=== PATIENT | male | born 1945 | race Caucasian/White ===

== ENCOUNTER 2024-07-27 11:26 | Inpatient (IN) | payer OTHER ==
[2024-07-27 12:18] LABS: Absolute Eosinophils 0.1 K/uL (0-0.5); Absolute Monocytes 0.6 K/uL (0.1-1.3); Absolute Neutrophil 8.8 K/uL (1.8-8.0); Basophils % 0.4 % (0-1.3); Eosinophils % 0.5 % (0-4.4); Hematocrit 45.6 % (39.6-49.0); Lymphocytes % 9.5 % (15.3-44.8); MCH 29.1 pg (27.0-35.0); MCHC 32.8 g/dL (32.0-36.0); MCV 88.5 fL (80-100); MPV 7.6 fL (7.6-11.3); Monocytes % 5.3 % (3.3-12.3); Neutrophils % 84.3 % (41.7-73.7); Platelets 229 thou/uL (152-406); RBC Red Blood Cell Count 5.15 M/uL (4.33-5.43); Red Cell Distribution Width 14.3 % (12.1-15.2)
[2024-07-27 12:25] LABS: PT Prothrombin Time 10.2 SECONDS (9.4-12.5); PTT, Activated Partial Thromb 25.7 SECONDS (24.3-36.9); Protime INR 0.91
--- NOTE | 2024-07-27 12:37 | RAD REPORT ---
EXAM DESCRIPTION: CT - Head Brain Wo Cont - 07/27/2024 12:29 pm CLINICAL HISTORY: DIZZINESS Headache, drowsiness COMPARISON: <Comparisons> TECHNIQUE: All CT scans are performed using dose optimization technique as appropriate and may inclu de automated exposure control or mA/KV adjustment according to patient size. FINDINGS: No intracranial hemorrhage, hydrocephalus or extra-axial fluid collection.Mild generalized brain atrophy is present with mild periventricular and deep white matter chronic microvascular ische jacqueline changes.No areas of brain edema or evidence of midline shift. The paranasal sinuses and mastoids are clear. The calvarium is intact. IMPRESSION: No acute intracranial abnormality.
[2024-07-27 12:41] LABS: Albumin 3.3 g/dL (3.4-5.0); Anion Gap 14.5 mEq/L (5.0-15.0); Bilirubin Direct 0.2 mg/dL (0-0.2); Bilirubin Indirect, Calculated 0.6 mg/dL (0.2-0.8); Bilirubin Total 0.8 mg/dL (0.2-1.0); Globulin 3.4 g/dL (2.3-3.5); Magnesium 2.1 mg/dL (1.6-2.4); Potassium 3.5 mEq/L (3.5-5.1); Protein, Total 6.7 g/dL (6.4-8.2); Troponin High Sensitivity 22.7 pg/mL (<58.9)
--- NOTE | 2024-07-27 12:43 | RAD REPORT ---
EXAM DESCRIPTION: CT - Head angio - 07/27/2024 12:29 pm CLINICAL HISTORY: dizziness Headache, drowsiness, CVA symptomology COMPARISON: <Comparisons> TECHNIQUE: CT angiography of the head was performed with MIPs. All CT scans are performed using dose optimization technique as appropriate and may include automated exposure control or mA/KV adjustment according to patient size. FINDINGS: No evidence of large vessel occlusion. No evidence of aneurysm is detected. No flow-limiti ng stenosis or vascular malformation identified. Antegrade flow is seen in the vertebral arteries. The vertebral arteries are codominant. The visualized dural venous sinuses are patent. IMPRESSION: No significant flow abnormality is detected.
--- NOTE | 2024-07-27 12:47 | RAD REPORT ---
EXAM DESCRIPTION: CT - Neck Angio - 07/27/2024 12:29 pm CLINICAL HISTORY: dizziness COMPARISON: <Comparisons> TECHNIQUE: CT angiography of the neck vessels was performed with MIPs. All CT scans are performed using dose optimization technique as appropriate and may include automated exposure control or mA/KV adjustment according to patient size. FINDINGS: A left aortic arch is identified with normal three vessel configuration of the great vesse ls. No significant flow abnormality is seen of the common carotid bilaterally. Mild hard plaque is seen post bulbar right ICA. No significant left-sided plaque. Small focal plaque also seen origin of the right ECA. Findings do not result in a significant stenosis. Normal flow is seen within both vertebral arteries. IMPRESSION: No significant flow abnormality of the neck vessels is identified. NASCET criteria used. Mild 0-49% stenosis Moderate 50-69% stenosis Severe 70-99% stenosis
[2024-07-27] MEDS ORDERED: ONDANSETRON 4 MG/2 ML VIAL ONE (13:05)
[2024-07-27] MEDS ORDERED: NA CHLORIDE 0.9% 1,000 ML ONE (13:05)
[2024-07-27] MEDS ORDERED: MECLIZINE HCL 12.5 MG TAB ONE (13:05)
--- NOTE | 2024-07-27 14:54 | RAD REPORT ---
EXAM DESCRIPTION: RAD - Chest Single View - 07/27/2024 2:22 pm CLINICAL HISTORY: dizziness Chest pain. COMPARISON: <Comparisons> FINDINGS: Portable technique limits examination quality. The lungs are grossly clear. The heart is upper limit of normal in size. No displaced fractures.Dual lead pacer device. IMPRESSION: No acute intrathoracic process suspected.
[2024-07-27] MEDS ORDERED: MORPHINE 2 MG/ML SYR IV PRN (15:33)
--- NOTE | 2024-07-27 15:40 | ER ---
Nurse's Notes [facility] Name: Sarath Cherry Age: 78 yrs Sex: Male : 1945 Arrival Date: 07/27/2024 Time: 11:26 Bed 19 Private MD: Diagnosis: Vertigo;Inability to ambulate;Left-sided facial droop Presentation: 07/27 11:46 Chief complaint: Parent and/or Guardian states: has had shingles since Jul 01, was in iw his ear , this last week they said it was clear, now he has dizziness and nausea and unable to walk X 3 weeks , they want him to have an MRI, my eyes are blurry and when I stand up I almost pass out, but he has a pacemaker. Coronavirus screen: At this time, the client does not indicate any symptoms associated with coronavirus-19. Ebola Screen: No symptoms or risks identified at this time. 11:46 Method Of Arrival: Wheelchair iw 11:46 Acuity: KAREN 3 iw 11:48 Initial Sepsis Screen: Does the patient meet any 2 criteria? No. Patient's initial iw sepsis screen is negative. Does the patient have a suspected source of infection? No. Patient's initial sepsis screen is negative. Risk Assessment: Do you want to hurt yourself or someone else? Patient reports no desire to harm self or others. Onset of symptoms was July 01, 2024. Historical: - Allergies: 11:48 PENICILLINS; iw 11:49 TETRACYCLINES; iw - Immunization history:: Client reports receiving the 2nd dose of the Covid vaccine. - Infectious Disease History:: Denies. - Family history:: not pertinent. - Social history:: Smoking status: unknown. Screenin:09 [facility] ED Fall Risk Assessment (Adult) History of falling in the last 3 months, tm6 including since admission No falls in past 3 months (0 pts) Confusion or Disorientation No (0 pts) Intoxicated or Sedated No (0 pts) Impaired Gait No (0 pts) Mobility Assist Device Used No (0 pt) Altered Elimination No (0 pt) Score/Fall Risk Level 0 - 2 = Low Risk Oriented to surroundings, Maintained a safe environment, Educated pt \\T\\ family on fall prevention, incl call for assistance when getting out of bed. Abuse screen: Denies threats or abuse. Denies injuries from another. Nutritional screening: No deficits noted. Tuberculosis screening: No symptoms or risk factors identified. Rice Swallow Protocol Exclusion Criteria: Brief Cognitive Screen What is your name? Normal, Where are you right now? Normal, What year is it? Normal. Oral Mechanism Examination Facial Symmetry: Normal, Motion: Normal, Lip Closure: Normal, Oral Mechanism Result: Normal. 3 oz Water Swallow Challenge: Pt able to drink all water without stopping, coughing, choking or throat clearing: Yes Result: PASS. Assessment: 13:10 General: Appears in no apparent distress. Behavior is calm, cooperative. Pain: Denies tm6 pain. Neuro: Level of Consciousness is awake, alert, obeys commands, Oriented to person, place, time, situation, Reports dizziness. Neuro: Reports "feels like a basketball in my head". Cardiovascular: Patient's skin is warm and dry. Respiratory: Airway is patent Respiratory effort is even, unlabored. GI: No signs and/or symptoms were reported involving the gastrointestinal system. Abdomen is flat, non-distended. : No signs and/or symptoms were reported regarding the genitourinary system. EENT: No signs and/or symptoms were reported regarding the EENT system. Derm: No signs and/or symptoms reported regarding the dermatologic system. Musculoskeletal: Reports weakness in general weakness. 14:59 Reassessment: Patient appears in no apparent distress at this time. Patient is alert, tm6 oriented x 3, equal unlabored respirations, skin warm/dry/pink. Patient is alert/active/playful, equal unlabored respirations, skin warm/dry/pink. Patient states feeling better. Patient states symptoms have improved. 18:30 Reassessment: Patient and/or family updated on plan of care and expected duration. Pain tm6 level reassessed. Patient is alert, oriented x 3, equal unlabored respirations, skin warm/dry/pink. report faxed and confirmed. Vital Signs: 11:46 BP 136 / 82; Pulse 72; Resp 16; Temp 98.1; Pulse Ox 100% on R/A; iw 13:10 BP 135 / 74; Pulse 76; Pulse Ox 100% on R/A; Pain 0/10; tm6 14:58 BP 144 / 79; Pulse 76; Resp 21; Temp 98.1; Pulse Ox 99% on R/A; Pain 0/10; tm6 19:10 BP 146 / 68; Pulse 75; Pulse Ox 97% on R/A; tm6 13:10 Pain Scale: Adult tm6 14:58 Pain Scale: Adult tm6 ED Course: 11:28 Patient arrived in ED. mr 11:46 Luis Monteiro MD is Attending Physician. rt 11:48 Triage completed. iw 11:49 Arm band placed on. iw 11:49 Patient has correct armband on for positive identification. Placed in gown. Bed in low tm6 position. Call light in reach. Side rails up X 1. Client placed on continuous cardiac and pulse oximetry monitoring. NIBP monitoring applied. universal banker on. Pulse ox on. NIBP on. 12:11 Basic Metabolic Panel Sent. bc6 12:11 CBC with Diff Sent. bc6 12:11 Hepatic Function Sent. bc6 12:11 High Sensitivity Troponin Sent. bc6 12:11 Magnesium Sent. bc6 12:11 Protime (+inr) Sent. bc6 12:11 Ptt, Activated Sent. bc6 12:11 Initial lab(s) drawn, by me, sent to lab. Inserted saline lock: 20 gauge in right bc6 antecubital area, using aseptic technique. Blood collected. Flushed with 10 mL NS. 12:31 CT Neck Angio In Process Unspecified. EDMS 12:31 CT Head Brain wo Cont In Process Unspecified. EDMS 12:31 Head angio In Process Unspecified. EDMS 12:57 William Henriquez, RN is Primary Nurse. tm6 14:24 Chest Single View XRAY In Process Unspecified. EDMS 15:39 Marino Lee MD is Hospitalizing Provider. rt 19:11 Provided Education on: need for admit. tm6 19:11 No provider procedures requiring assistance completed. Patient admitted, IV remains in tm6 place. Administered Medications: 13:09 Drug: NS 0.9% IV 1000 ml IV at 1 bolus Per protocol; 1000 mL bolus Route: IV; Rate: 1 tm6 bolus; Site: right antecubital; 15:08 Follow up: Response: No adverse reaction; IV Status: Completed infusion; IV Intake: tm6 1000ml 13:09 Drug: Meclizine PO 50 mg PO once Route: PO; tm6 15:08 Follow up: Response: No adverse reaction; Marked relief of symptoms tm6 13:09 Drug: Ondansetron IVP 4 mg IVP once; over 2 minutes Route: IVP; Site: right antecubital;tm6 15:08 Follow up: Response: No adverse reaction tm6 Medication: 13:10 VIS not applicable for this client. tm6 Intake: 15:08 IV: 1000ml; Total: 1000ml. tm6 Outcome: 15:40 Decision to Hospitalize by Provider. rt 19:11 Admitted to Med/surg tm6 19:11 Condition: stable 19:11 Instructed on the need for admit, 19:14 Patient left the ED. tm6 Signatures: Dispatcher [employer] EDMS Rosemarie Rico, Reg Reg mr Cristiana Rao RN RN Luis Monteiro MD MD rt Marlee Figueroa [facility] William Henriquez RN RN tm6 Corrections: (The following items were deleted from the chart) 11:49 11:48 Allergies: No Known Allergies; [facility]
--- NOTE | 2024-07-27 15:40 | EDPHYS ---
Physician Documentation [facility] Name: Sarath Cherry Age: 78 yrs Sex: Male : 1945 Arrival Date: 07/27/2024 Time: 11:26 Bed 19 Private MD: ED Physician Luis Monteiro HPI: 07/27 13:48 This 78 yrs old Male presents to ER via Wheelchair with complaints of Weakness, rt Dizziness, Headache, Decreased Appetite. 13:48 Patient presents to the ED with vertigo, dizziness, inability to stand or walk. He has rt associated nausea, vomiting. 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 States that the shingles is clear but he continues to have the dizziness symptoms, worsening. Was supposed to have an MRI, was able to do so due to pacemaker. Denies other acute complaints at this time, symptoms are moderate in severity, no other aggravating elevating factors. Historical: - Allergies: 11:48 PENICILLINS; iw 11:49 TETRACYCLINES; iw - Immunization history:: Client reports receiving the 2nd dose of the Covid vaccine. - Infectious Disease History:: Denies. - Family history:: not pertinent. - Social history:: Smoking status: unknown. ROS: 13:48 Constitutional: Negative for fever, chills, and weight loss, Cardiovascular: Negative rt for chest pain, palpitations, and edema, Respiratory: Negative for shortness of breath, cough, wheezing, and pleuritic chest pain, MS/Extremity: Negative for injury and deformity, Skin: Negative for injury, rash, and discoloration, 13:48 Abdomen/GI: Positive for nausea and vomiting, 13:48 Neuro: Positive for dizziness, Negative for altered mental status, Exam: 13:48 Constitutional: This is a well developed, well nourished patient who is awake, alert, rt and in no acute distress. Head/Face: Normocephalic, atraumatic. Chest/axilla: Normal chest wall appearance and motion. Nontender with no deformity. No lesions are appreciated. Cardiovascular: Regular rate and rhythm with a normal S1 and S2. No gallops, murmurs, or rubs. Normal PMI, no JVD. No pulse deficits. Respiratory: Lungs have equal breath sounds bilaterally, clear to auscultation and percussion. No rales, rhonchi or wheezes noted. No increased work of breathing, no retractions or nasal flaring. Abdomen/GI: Soft, non-tender, with normal bowel sounds. No distension or tympany. No guarding or rebound. No evidence of tenderness throughout. Skin: Warm, dry with normal turgor. Normal color with no rashes, no lesions, and no evidence of cellulitis. MS/ Extremity: Pulses equal, no cyanosis. Neurovascular intact. Full, normal range of motion. 13:48 ECG was reviewed by the Attending Physician. 13:48 Neuro: Left-sided Cia's palsy, involving the eyebrow, no other cranial nerve deficits, strength and sensation intact in upper lower extremities, speech normal, Vital Signs: 11:46 BP 136 / 82; Pulse 72; Resp 16; Temp 98.1; Pulse Ox 100% on R/A; iw 13:10 BP 135 / 74; Pulse 76; Pulse Ox 100% on R/A; Pain 0/10; tm6 14:58 BP 144 / 79; Pulse 76; Resp 21; Temp 98.1; Pulse Ox 99% on R/A; Pain 0/10; tm6 19:10 BP 146 / 68; Pulse 75; Pulse Ox 97% on R/A; tm6 13:10 Pain Scale: Adult tm6 14:58 Pain Scale: Adult tm6 MDM: 11:51 Patient medically screened. rt 16:07 Data reviewed: vital signs, nurses notes, lab test result(s), EKG, radiologic studies. rt Consideration of Admission/Observation Patient was admitted/placed on observation. Management of patient was discussed with the following: Hospitalist: Agrees to admit. I considered the following discharge prescriptions or medication management in the emergency department Medications were administered in the Emergency Department. See MAR. Independent interpretation of the following test(s) in the Emergency Department CT Scan: My interpretation is No intracranial hemorrhage seen on my interpretation of CT scan images. 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 Counseling: I had a detailed discussion with the patient and/or guardian regarding the historical points, exam findings, and any diagnostic results supporting the discharge/admit diagnosis, lab results, radiology results, the need for further work-up and treatment in the hospital. Response to treatment: the patient's symptoms have mildly improved after treatment. 07/27 12:02 Order name: Basic Metabolic Panel; Complete Time: 12:57 rt 07/27 12:02 Order name: CBC with Diff; Complete Time: 12:57 rt 07/27 12:02 Order name: Hepatic Function; Complete Time: 12:57 rt 07/27 12:02 Order name: High Sensitivity Troponin; Complete Time: 12:57 rt 07/27 12:02 Order name: Magnesium; Complete Time: 12:57 rt 07/27 12:02 Order name: Protime (+inr); Complete Time: 12:57 rt 07/27 12:02 Order name: Ptt, Activated; Complete Time: 12:57 rt 07/27 13:54 Order name: CREATININE WHOLE BLOOD; Complete Time: 14:04 EDMS 07/27 15:41 Order name: CBC with Automated Diff EDMS 07/27 15:41 Order name: CBC with Automated Diff EDMS 07/27 15:41 Order name: Comprehensive Metabolic Panel EDMS 07/27 15:41 Order name: Comprehensive Metabolic Panel EDMS 07/27 15:41 Order name: Protime (+INR) EDMS 07/27 15:41 Order name: Protime (+INR) EDMS 07/27 15:41 Order name: PTT, Activated Partial Thromb EDMS 07/27 15:41 Order name: PTT, Activated Partial Thromb EDMS 07/27 15:41 Order name: Troponin High Sensitivity EDMS 07/27 15:41 Order name: Troponin High Sensitivity EDMS 07/27 15:41 Order name: Troponin High Sensitivity EDMS 07/27 15:42 Order name: Lipid Profile EDMS 07/27 12:02 Order name: CT Neck Angio; Complete Time: 12:57 rt 07/27 12:02 Order name: CT Head Brain wo Cont; Complete Time: 12:57 rt 07/27 12:02 Order name: Chest Single View XRAY; Complete Time: 14:57 rt 07/27 12:06 Order name: Head angio; Complete Time: 12:57 EDMS 07/27 12:02 Order name: EKG; Complete Time: 12:02 rt 07/27 15:41 Order name: CONS Physician Consult EDMS 07/27 12:02 Order name: Accucheck; Complete Time: 13:09 rt 07/27 12:02 Order name: Cardiac monitoring; Complete Time: 13:09 rt 07/27 12:02 Order name: EKG - Nurse/Tech; Complete Time: 12:20 rt 07/27 12:02 Order name: IV Saline Lock; Complete Time: 12:11 rt 07/27 12:02 Order name: Labs collected and sent; Complete Time: 12:28 rt 07/27 12:02 Order name: NPO; Complete Time: 13:09 rt 07/27 12:02 Order name: O2 Per Protocol; Complete Time: 12:57 rt 07/27 12:02 Order name: O2 Sat Monitoring; Complete Time: 12:57 rt 07/27 12:02 Order name: Stroke Swallow Screen; Complete Time: 13:09 rt EC:48 Rate is 81 beats/min. Rhythm is regular, Normal Sinus Rhythm with No ectopy. QRS [place] rt is Normal. CO interval is normal. QRS interval is normal. QT interval is normal. No Q waves. T waves are Normal. No ST changes noted. Interpreted by me. Administered Medications: 13:09 Drug: NS 0.9% IV 1000 ml IV at 1 bolus Per protocol; 1000 mL bolus Route: IV; Rate: 1 tm6 bolus; Site: right antecubital; 15:08 Follow up: Response: No adverse reaction; IV Status: Completed infusion; IV Intake: tm6 1000ml 13:09 Drug: Meclizine PO 50 mg PO once Route: PO; tm6 15:08 Follow up: Response: No adverse reaction; Marked relief of symptoms tm6 13:09 Drug: Ondansetron IVP 4 mg IVP once; over 2 minutes Route: IVP; Site: right antecubital;tm6 15:08 Follow up: Response: No adverse reaction tm6 Disposition Summary: 07/27/24 15:40 Hospitalization Ordered Notes: Hospitalization Status: Observation rt Provider: Marino Lee rt Location: Telemetry/MedSurg (observation) rt Condition: Stable rt Problem: an ongoing problem rt Symptoms: have improved rt Bed/Room Type: Standard rt Room Assignment: 216(07/27/24 17:56) iw Diagnosis - Vertigo rt - Inability to ambulate rt - Left-sided facial droop rt Forms: - Medication Reconciliation Form rt - SBAR form rt - Leadership Thank You Letter rt Signatures: Dispatcher [employer] Cristiana Gustafson RN RN iw Luis Monteiro MD MD rt William Henriquez RN RN tm6 Corrections: (The following items were deleted from the chart) 11:49 11:48 Allergies: No Known Allergies; [facility] 17:56 15:40 rt iw
--- NOTE | 2024-07-27 15:49 | P.HP ---
Certification for Inpatient Patient admitted to: Inpatient With expected LOS: >2 Midnights Patient will require the following post-hospital care: Home Health Services Practitioner: I am a practitioner with admitting privileges, knowledge of patient current condition, hospital course, and medical plan of care. Services: Services provided to patient in accordance with Admission requirements found in Title 42 Section 412.3 of the Code of Federal Regulations Patient History Date of Service: 07/27/24 Reason for admission: Vertigo; ataxia; diplopia History of Present Illness: Patient is a 78-year-old gentleman who came to the hospital with vertigo. He states he has been losing weight and is unable to walk properly. His left arm has been weak as well. He said the symptoms. About 3 weeks ago when he developed shingles in the left ear. Since then he was treated with valacyclovir and steroids. Even after completing his steroid course he continues having symptoms with vertigo as well as weakness in the left side. He is having a hard time getting around. He has had double vision as well. His appetite is also been diminished and he gets nauseated whenever he gets ready to eat. He has lost about 20 pounds in the last 3 weeks. He probably suffered to the hospital for further workup. He follows up with his PCP in [place]. He was scheduled to get an MRI done but at that time they were not aware where it was compatible with an MRI. After talking to patient's slide attendant who inserted the pacemaker they found out it was compatible with MRI. At this time, patient will be admitted to the hospital for further workup. - Past Medical/Surgical History -: Hypertension -: BPH - Family History Father Family History: Reviewed- Non-Contributory - Social History Smoking Status: Former smoker Alcohol use: No CD- Drugs: No Review of Systems 10-point ROS is otherwise unremarkable Physical Examination - Vital Signs Temperature: 98 F Blood Pressure: 150/80 Pulse: 80 Respirations: 18 Pulse Ox (%): 95 - Physical Exam General: Alert, In no apparent distress, Oriented x3 HEENT: Atraumatic, PERRLA, Mucous membr. moist/pink, EOMI, Sclerae nonicteric Neck: Supple, 2+ carotid pulse no bruit, No LAD, Without JVD or thyroid abnormality Respiratory: Clear to auscultation bilaterally, Normal air movement Cardiovascular: Regular rate/rhythm, Normal S1 S2 Gastrointestinal: Normal bowel sounds, Soft and benign, Non-distended, No tenderness Musculoskeletal: No clubbing, No swelling, No tenderness Integumentary: No rashes Neurological: Normal speech, Normal tone, Sensation intact, Cranial nerves 3-12 intact, Normal affect, Abnormal gait, Abnormal strength Lymphatics: No axilla or inguinal lymphadenopathy - Studies Laboratory Data (last 24 hrs) 07/27/24 07/27/24 07/27/24 12:10 12:10 12:10 WBC 10.40 Hgb 15.0 Hct 45.6 Plt Count 229 PT 10.2 INR 0.91 APTT 25.7 Sodium 135 L Potassium 3.5 BUN 25 H Creatinine 0.95 Glucose 99 Magnesium 2.1 Total Bilirubin 0.8 AST 19 ALT 29 Alkaline Phosphatase 65 Assessment & Plan - Problems (Diagnosis) (1) Vertigo Current Visit: Yes Status: Acute (2) Blurred vision Current Visit: Yes Status: Acute (3) Ataxia Current Visit: Yes Status: Acute (4) History of hypertension Current Visit: Yes Status: Acute (5) Left-sided weakness Current Visit: Yes Status: Acute - Plan Plan: 1. MRI of the brain; pacemaker compatible with MRI imaging. Patient follows up with Dr. Weathers. Paperwork in the chart 2. Antiplatelet and statin therapy 3. Lipid profile 4. Physical therapy and speech therapy consultation 5. DVT prophylaxis 6. Neurochecks every 4 hours 7. Reassess stroke scale 8. GI and DVT prophylaxis Discharge Plan: Home Plan to discharge in: Greater than 2 days - Advance Directives Does patient have a Living Will: No Does patient have a Durable POA for Healthcare: No - Code Status/Comfort Care Code Status Assessed: Yes Code Status: Full Code Critical Care: No Time Spent Managing PTS Care (In Minutes): 56
[2024-07-27] MEDS: ENOXAPARIN 40 MG/0.4 ML SQ SCH (21:20)
[2024-07-27] MEDS: ATORVASTATIN 40 MG TAB PO SCH (21:21)
[2024-07-27] MEDS: HYDROCORTISONE SUC 100 MG INJ IV SCH (21:22)
[2024-07-27] MEDS: ACETAMINOPHEN 500 MG TAB PO PRN (21:23)
[2024-07-27] MEDS: NA CHLORIDE 0.9% 1,000 ML IV SCH (21:23)
[2024-07-27 22:27] VITALS: BMI 22.5
[2024-07-27] MEDS: MELATONIN 5 MG TABLET PO PRN (23:25)
[2024-07-28 04:44] LABS: Absolute Basophils 0.1 K/uL (0-0.5); Absolute Eosinophils 0.2 K/uL (0-0.5); Absolute Lymphocytes (CBC) 0.3 K/uL (0.7-4.9); Absolute Monocytes 0.3 K/uL (0.1-1.3); Absolute Neutrophil 9.3 K/uL (1.8-8.0); Basophils % 0.8 % (0-1.3); Eosinophils % 1.8 % (0-4.4); Hematocrit 37.8 % (39.6-49.0); Hemoglobin 12.4 g/dL (13.6-17.9); Lymphocytes % 2.7 % (15.3-44.8); MCH 29.1 pg (27.0-35.0); MCHC 32.8 g/dL (32.0-36.0); MCV 88.8 fL (80-100); MPV 7.8 fL (7.6-11.3); Monocytes % 3.1 % (3.3-12.3); Neutrophils % 91.6 % (41.7-73.7); Platelets 184 thou/uL (152-406); RBC Red Blood Cell Count 4.25 M/uL (4.33-5.43); Red Cell Distribution Width 14.5 % (12.1-15.2)
[2024-07-28 04:47] LABS: PT Prothrombin Time 10.9 SECONDS (9.4-12.5); Protime INR 0.97
[2024-07-28 05:01] LABS: Albumin 2.6 g/dL (3.4-5.0); Anion Gap 11.6 mEq/L (5.0-15.0); Bilirubin Total 0.6 mg/dL (0.2-1.0); Globulin 2.7 g/dL (2.3-3.5); Potassium 3.6 mEq/L (3.5-5.1); Protein, Total 5.3 g/dL (6.4-8.2)
[2024-07-28 05:26] LABS: Band Neutrophils 5 % (0-1); Differential Total Cells Count 100; Eosinophils 4 % (0-3); Lymphocytes 2 % (15-42); Monocytes 2 % (0-10); Segmented Neutrophils 86 % (40-80)
[2024-07-28 05:27] LABS: Blood Morphology Comment NOT SEEN (NOT SEEN); Platelet Estimate ADEQ
[2024-07-28] MEDS: ASPIRIN EC 81 MG TAB PO SCH (08:39)
--- NOTE | 2024-07-28 10:26 | P.PN ---
Date of Service: 07/28/24 Subjective Reports unintentional weight loss, moderate generalized weakness, vertigo, Neurology consulted, at bedside, fall precautions reports he is too weak to work with physical therapy Review of Systems 10-point ROS is otherwise unremarkable Physical Examination - Vital Signs reviewed - Physical Exam General: Alert, In no apparent distress, Oriented x3 HEENT: Atraumatic, PERRLA, Mucous membr. moist/pink, EOMI, Sclerae nonicteric Neck: Supple, 2+ carotid pulse no bruit, No LAD, Without JVD or thyroid abnormality Respiratory: Clear to auscultation bilaterally, Normal air movement Cardiovascular: Regular rate/rhythm, Normal S1 S2 Gastrointestinal: Normal bowel sounds, Soft and benign, Non-distended, No tenderness Musculoskeletal: No clubbing, No swelling, No tenderness Integumentary: No rashes Neurological: Normal speech, Normal tone, Sensation intact, Cranial nerves 3-12 intact, Normal affect, Abnormal gait, Abnormal strength Lymphatics: No axilla or inguinal lymphadenopathy Assessment & Plan - Problems (Diagnosis) (1) Vertigo Current Visit: Yes Status: Acute (2) Blurred vision Current Visit: Yes Status: Acute (3) Ataxia Current Visit: Yes Status: Acute (4) History of hypertension Current Visit: Yes Status: Acute (5) Left-sided weakness Current Visit: Yes Status: Acute - Plan Plan: 1. MRI of the brain; pacemaker compatible with MRI imaging. Patient follows up with Dr. Weathers. Paperwork in the chart 2. Antiplatelet and statin therapy 3. Lipid profile 4. Physical therapy and speech therapy consultation 5. DVT prophylaxis 6. Neurochecks every 4 hours 7. Reassess stroke scale 8. GI and DVT prophylaxis 9. CRP, TSH, vitamin B12 level, VZV IgG ordered by neurology 10. Neurology consult Dr. Fallon Discharge Plan: Home Plan to discharge in: Greater than 2 days - Advance Directives Does patient have a Living Will: No Does patient have a Durable POA for Healthcare: No - Code Status/Comfort Care Code Status Assessed: Yes Code Status: Full Code Critical Care: No Time Spent Managing PTS Care (In Minutes): 35 <Evy Pate - Last Filed: 07/28/24 21:25> Chart has been reviewed. Events of the last 24 hours have been noted. Case discussed with ARIEL. I performed a substantial part of the MDM during this patient's care today. I personally made or approved the documented management plan and acknowledge its risk of complications. I agree with the findings and documentation provided in the ARIEL's notes Awaiting for neurology input. Further studies with EEG pending. Trying to get patient transferred for MRI which is compatible with a pacemaker. <Marino Lee - Last Filed: 08/06/24 01:42>
--- NOTE | 2024-07-28 12:10 | EKG ---
Test Date: 2024-07-27 Test Time: 12:17:47 [employer] Supervisor: SHELLIE MEASUREMENT RESULTS: Intervals: Rate: 81 CO: 202 QRSD: 80 QT: 394 QTc: 457 [place]: P: 51 CO: 202 QRS: 76 T: 18 INTERPRETIVE STATEMENTS: Atrial-paced rhythm Abnormal ECG No previous ECG available for comparison Electronically Signed On 07-28-24 12:07:17 CDT by Carlos Thompson
[2024-07-28] MEDS: ONDANSETRON 4 MG/2 ML VIAL IV PRN (12:18)
[2024-07-28] MEDS: BISACODYL E.C. 5 MG TAB PO PRN (14:31)
[2024-07-28] MEDS: OXYCODONE *CR* 10 MG TAB PO SCH (16:35)
[2024-07-28] MEDS: FINASTERIDE 5 MG TAB PO SCH (16:36)
[2024-07-28] MEDS: AMLODIPINE 5 MG TAB PO SCH (16:36)
[2024-07-28] MEDS: lisinopriL 20 MG TAB PO SCH (16:36)
--- NOTE | 2024-07-28 23:21 | CON ---
Date of Consultation: 07/28/2024 Reason: Vertigo and ataxia. 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 He was actually up at [facility] about a week ago because he has been having prominent vertigo with nausea and has had some worsening gait imbalance problem, was fel t to probably be labyrinthine, and there was an issue there getting the MRI as well, so it was schedu led as an outpatient as he was slowly recovering or at least felt to be stable, but then he got home, finished the Valtrex and developed worsening gait problems, now requiring a walker to walk with some blurry and double vision. He has very prominent nystagmus even at rest with a rotatory component ev en without head movement. Difficulty eating and difficulty drinking, although he does not have dysph agia proper. Pacemaker is felt to be MRI compatible. He came to the ER because he continued to have difficulties walking and diplopia, all are little concerning for stroke. CT scan of the brain, no h emorrhage. CT angiogram, no large vessel occlusion. CT angiogram, neck vessels, vertebral patent, n o bleeding, no dissection. The patient went down to get an MRI, but it was determine that some type of special monitoring would be required and that this hospital would not have that capability, so he actually may need to be transferred for more advanced imaging that can be done safely. His primary c are had recommended that he see us as an outpatient, and that is in the words, but it would take a mo [facility] to see Neurology as an outpatient if not longer, so he presented to the emergency department here last night. It was clear that he could not be sent home safely. He can barely walk with a walker a nd so he was admitted, and I was consulted. Past Medical History: As alluded to. Medications: Home medications: Amlodipine, Zestril, finasteride, oxybutynin, esomeprazole. Medications here: Aspirin, Norvasc, Lipitor, Lovenox, Solu-Cortef he had recently, steroids, morphin e p.r.n., OxyContin. Allergies: PENICILLIN. Social History: Normally independent with activities of daily living. Family History: Noncontributory. Review of Systems: General: 20-pound weight loss, poor p.o. intake. Eyes: Diplopia. Ears, Nose, Throat: No dysphagia. Cardiovascular: Pacemaker, hypertension. Pulmonary: Negative. GI: Nausea. : Negative. Musculoskeletal: Negative. No neck pain. Neurologic: As noted. Psychiatric: Negative. Endocrine: Negative. Hematologic: Negative. Physical Examination: Vital Signs: 97.8, 62, 16, 158/74. General: Pleasant, somewhat thin gentleman, lying in bed, in no distress. He is awake, alert, orien josé miguel. He is not confused. Neurologic: He has ptosis on the right lid. He has spontaneous nystagmus to the right with a rotato ry component worse on the right gaze. Pupils are reactive. He has subjective diplopia. Had neutral gaze as well as left and right gaze. He has left facial weakness that spares the forehead, but the patient reports that it is an improving lower motor neuron type weakness. He does have some weakness to lid closure on the left, but is able to close both lids fully. No dysarthria. No dysphagia. Le ft tympanic membrane is clear. He does have some weakness to the left arm, but he says that is a lit tle more longstanding and he has a left biceps tendon rupture. I would gauge though weakness at 4+, but as noted there is no superimposed orthopedic component. Legs have full strength. Sensation is i ntact. Reflexes are 1/4. Left toe is upgoing, right toe is neutral. No [id number]-[id number]-mdeycd ataxia. Gait exam does demonstrate moderate truncal ataxia. Impression: Recent shingles, now with symptoms of posterior fossa ischemia versus potential superimp osed nutritional deficiency to account for the gait decompensation. It could be a persistent viral l abyrinthitis, but nausea is not extremely prominent and head impulse testing is nondiagnostic. Plan: Medications are appropriate for stroke prevention. He had an EEG that just demonstrated mild generalized slowing at least reassuring that there is not an encephalitic component. We will check a B12, thyroid, B1 level, sedimentation rate now which was not available. We will check a CRP. We wi ll repeat varicella titers. While he is here, we will restart some acyclovir IV given the history of recent shingles. If the patient does not improve with the aforementioned, he may indeed need to be transferred for MRI brain. Thank you for the consult. We will continue to follow with you. SATISH Voice ID: [id number] Report ID: [id number]
[2024-07-29] MEDS: ACYCLOVIR INJ 400 MG in NA CHLORIDE 0.9% 100 ML IVPB SCH (01:11)
[2024-07-29] MEDS: PANTOPRAZOLE 40MG TABLET PO SCH (05:21)
[2024-07-29] MEDS: OXYBUTYNIN ER 5 MG TAB PO SCH (05:22)
[2024-07-29 06:44] LABS: C-Reactive Protein 4.08 mg/L (<3.00); Thyroid Stimulating Hormone 1.88 uIU/mL (0.358-3.740)
--- NOTE | 2024-07-29 07:22 | P.PN ---
Date of Service: 07/29/24 Subjective Reports unintentional weight loss, moderate generalized weakness, vertigo, Neurology consulted, at bedside, fall precautions reports he is too weak to work with physical therapy Review of Systems 10-point ROS is otherwise unremarkable Physical Examination - Vital Signs reviewed - Physical Exam General: Alert, In no apparent distress, Oriented x3 HEENT: Atraumatic, PERRLA, Mucous membr. moist/pink, EOMI, Sclerae nonicteric Neck: Supple, 2+ carotid pulse no bruit, No LAD, Without JVD or thyroid abnormality Respiratory: Clear to auscultation bilaterally, Normal air movement Cardiovascular: Regular rate/rhythm, Normal S1 S2 Gastrointestinal: Normal bowel sounds, Soft and benign, Non-distended, No tenderness Musculoskeletal: No clubbing, No swelling, No tenderness Integumentary: No rashes Neurological: Normal speech, Normal tone, Sensation intact, Cranial nerves 3-12 intact, Normal affect, Abnormal gait, Abnormal strength Lymphatics: No axilla or inguinal lymphadenopathy Assessment & Plan - Problems (Diagnosis) suspected CVA Acute vertigo nausea vomiting Acute blurred vision Recent shingles infection [place] Gallo syndrome History of hypertension Acute left-sided weakness Acute ataxia history of bradycardia arrhythmia with recent pacemaker - Plan Plan: 1. MRI of the brain; pacemaker compatible with MRI imaging. Patient follows up with Dr. Weathers. Paperwork in the chart 2. Antiplatelet and statin therapy 3. Lipid profile 4. Physical therapy and speech therapy consultation 5. DVT prophylaxis 6. Neurochecks every 4 hours 7. Reassess stroke scale 8. GI and DVT prophylaxis 9. CRP, TSH, vitamin B12 level, VZV IgG ordered by neurology 10. Neurology consult Dr. Fallon Discharge Plan: Home Plan to discharge in: Greater than 2 days - Advance Directives Does patient have a Living Will: No Does patient have a Durable POA for Healthcare: No - Code Status/Comfort Care Code Status Assessed: Yes Code Status: Full Code Critical Care: No Time Spent Managing PTS Care (In Minutes): 35 <Evy Pate - Last Filed: 08/01/24 16:56> Chart has been reviewed. Events of the last 24 hours have been noted. Case discussed with ARIEL. I performed a substantial part of the MDM during this patient's care today. I personally made or approved the documented management plan and acknowledge its risk of complications. I agree with the findings and documentation provided in the ARIEL's notes Appreciate neurology input. Imaging studies reviewed. EEG reviewed. Trying to get patient transferred for MRI which is compatible with a pacemaker.Continue with physical therapy. Possible inpatient rehab placement. <Marino Lee - Last Filed: 08/06/24 01:43>
--- NOTE | 2024-07-29 07:35 | EEG ---
CHART: [id number] TEST ID#: [id number] DATE OF STUDY: 07-28-2024 THE EEG WAS RECORDED [place] IN THE PATIENT'S ROOM ON A 17 CHANNEL MACHINE. ELECTRODES WERE APPLIED IN THE USUAL MANNER USING THE INTERNATIONAL 10-20 SYSTEM. THE WAKING BACKGROUND RHYTHM IN THIS RECORD CONSISTS OF FAIRLY WELL DEVELOPED AND FAIRLY WELL ORGANIZED WAVES OF 9 HZ., MAXIMAL IN THE POSTERIOR HEAD REGIONS WHICH ATTENUATE NORMALLY WITH EYE OPENING. IN DROWSINESS THE BACKGROUND DROPS TO 8 HZ. THERE ARE NO FOCAL OR LATERALIZING FEATURES. NO EPILEPTIFORM ACTIVITY APPEARS. SLEEP DID NOT OCCUR. HYPERVENTILATION WAS NOT PERFORMED. PHOTIC STIMULATION PRODUCED FAIR DRIVING BILATERALLY. IMPRESSION: ABNORMAL EEG BECAUSE OF GENERALIZED SLOWING OF THE BACKGROUND. THE ABOVE SUGGESTS MILD DIFFUSE CEREBRAL DYSFUNCTION.
[2024-07-29] MEDS ORDERED: HOME MED 1 EA UNK (Esomeprazole Magnesium [Esomeprazole Magnesium] 40 MG Capsule.Dr) PO SCH (09:00)
[2024-07-29] MEDS: ACYCLOVIR INJ 700 MG in NA CHLORIDE 0.9% 100 ML IVPB SCH (09:33)
[2024-07-29] MEDS ORDERED: AMLODIPINE 5 MG TAB PO SCH (17:00)
[2024-07-29] MEDS: THIAMINE 200 MG/2 ML INJ IVP ONE (20:35)
--- NOTE | 2024-07-29 21:50 | PN ---
Date of Progress Note: 07/29/2024 Time: 1830 Reason: Ataxia, diplopia. Interval History: The patient is stable. He was able to walk a little better. Tolerated IV acyclov ir well and that has been increased to 10 mg/kg dose. Primary complaint remains diplopia and ataxia. Given those 2 symptoms with concomitant weight loss, we will add thiamine. Thiamine level is pendi ng. It may take some time for that to return. He is off the stress dose steroids. Physical Examination: Vital Signs: He is afebrile. Vitals are stable. General: Awake, alert, oriented. Neurologic: Left facial weakness, forehead spared. Spontaneous rotatory nystagmus, compo nent to the right. Ptosis, right eye. Slight ocular misalignment. Left biceps still weak, but appa rently that is a longstanding finding per the patient. Reflexes are well preserved. Toes are neutra l today. Impression: Diplopia and ataxia. Plan: Add thiamine. Continue the acyclovir. MRI is not going to be feasible at this institution. Talked to the patient's attending about trying to get a transfer for more advanced imaging. Given th e persistent symptomatology, we will continue to follow with you. ERIKA/ANY Voice ID: [id number] Report ID: [id number]
--- NOTE | 2024-07-30 07:21 | P.PN ---
Date of Service: 07/30/24 Subjective Reports unintentional weight loss, moderate generalized weakness, vertigo, Neurology consulted, at bedside, fall precautions reports he is too weak to work with physical therapy Review of Systems 10-point ROS is otherwise unremarkable Physical Examination - Vital Signs reviewed - Physical Exam General: Alert, In no apparent distress, Oriented x3 HEENT: Atraumatic, PERRLA, Mucous membr. moist/pink, EOMI, Sclerae nonicteric Neck: Supple, 2+ carotid pulse no bruit, No LAD, Without JVD or thyroid abnormality Respiratory: Clear to auscultation bilaterally, Normal air movement Cardiovascular: Regular rate/rhythm, Normal S1 S2 Gastrointestinal: Normal bowel sounds, Soft and benign, Non-distended, No tenderness Musculoskeletal: No clubbing, No swelling, No tenderness Integumentary: No rashes Neurological: Normal speech, Normal tone, Sensation intact, Cranial nerves 3-12 intact, Normal affect, Abnormal gait, Abnormal strength Lymphatics: No axilla or inguinal lymphadenopathy Assessment & Plan - Problems (Diagnosis) suspected CVA Acute vertigo nausea vomiting Acute blurred vision Recent shingles infection [place] Gallo syndrome History of hypertension Acute left-sided weakness Unintentional weight loss Acute ataxia history of bradycardia arrhythmia with recent pacemaker - Plan Plan: 1. MRI of the brain; pacemaker compatible with MRI imaging. Patient follows up with Dr. Weathers. Paperwork in the chart 2. Antiplatelet and statin therapy 3. Lipid profile 4. Physical therapy and speech therapy consultation 5. DVT prophylaxis 6. Neurochecks every 4 hours 7. Reassess stroke scale 8. GI and DVT prophylaxis 9. CRP, TSH, vitamin B12 level, VZV IgG ordered by neurology 10. Neurology consult Dr. Fallon Discharge Plan: Home Plan to discharge in: Greater than 2 days - Advance Directives Does patient have a Living Will: No Does patient have a Durable POA for Healthcare: No - Code Status/Comfort Care Code Status Assessed: Yes Code Status: Full Code Critical Care: No Time Spent Managing PTS Care (In Minutes): 35 <Evy Pate - Last Filed: 08/01/24 17:02> Chart has been reviewed. Events of the last 24 hours have been noted. Case discussed with ARIEL. I performed a substantial part of the MDM during this patient's care today. I personally made or approved the documented management plan and acknowledge its risk of complications. I agree with the findings and documentation provided in the ARIEL's notes Appreciate neurology input. Imaging studies reviewed. EEG reviewed. Trying to get patient transferred for MRI which is compatible with a pacemaker.Continue with physical therapy. Possible inpatient rehab placement. <Marino Lee - Last Filed: 08/06/24 01:43>
--- NOTE | 2024-07-30 07:54 | RAD REPORT ---
EXAM DESCRIPTION: CT - Head Brain Wo Cont - 07/30/2024 7:36 am CLINICAL HISTORY: diplopia COMPARISON: Head angio dated 07/27/2024; Head Brain Wo Cont dated 07/27/2024 TECHNIQUE: All CT scans are performed using dose optimization technique as appropriate and may inclu de automated exposure control or mA/KV adjustment according to patient size. FINDINGS: No intracranial hemorrhage, hydrocephalus or extra-axial fluid collection.No areas of brai n edema or evidence of midline shift. The paranasal sinuses and mastoids are clear. The calvarium is intact. IMPRESSION: No acute intracranial abnormality.
[2024-07-30] MEDS: THIAMINE 200 MG/2 ML INJ IVP SCH (09:43)
--- NOTE | 2024-07-30 23:06 | PN ---
Date of Progress Note: 07/30/2024 Time: 1630 Reason: Ataxia and diplopia. Interval History: Despite multiple attempts to get the patient transferred for more advanced imaging was successful. The patient is indeed stable. He is on appropriate medication for secondary stroke prevention and there is no evidence for large vessel occlusion on CT scan. Continues to have diplop ia. The nausea is improving and the gait is improving, so I recommend continuing the present treatme nt course. Consult for inpatient rehab has been ordered. I think that would be appropriate as well. He was ambulating independently prior to admission. Physical Examination: Vital Signs: He is afebrile. Vitals are stable. General: Awake, alert, oriented, lucid. Neurologic: Pupils reactive. Spontaneous nystagmus to the right, less prominent. Still subjective diplopia. Left facial weakness. Left arm weakness more longstanding. Reflexes symmetric. No finge b-hugj-[id number] ataxia. Impression: Diplopia, ataxia, probable posterior fossa ischemic event. Plan: Continue general supportive care. Inpatient rehab scheduled for evaluation on Friday tamera hamilton. Would continue the thiamine and IV acyclovir while he is hospitalized. Check electrolytes an d renal function in the morning. We will follow up on Friday. ERIKA/ANY Voice ID: [id number] Report ID: [id number]
[2024-07-31 07:15] LABS: Albumin 2.6 g/dL (3.4-5.0); Anion Gap 7.1 mEq/L (5.0-15.0); Bilirubin Total 0.4 mg/dL (0.2-1.0); Globulin 2.7 g/dL (2.3-3.5); Potassium 3.1 mEq/L (3.5-5.1); Protein, Total 5.3 g/dL (6.4-8.2)
--- NOTE | 2024-07-31 08:22 | P.PN ---
Date of Service: 07/31/24 Subjective Reports nausea plan to transition to acute inpatient Review of Systems 10-point ROS is otherwise unremarkable Physical Examination - Vital Signs reviewed - Physical Exam General: Alert, In no apparent distress, Oriented x3 HEENT: Atraumatic, PERRLA, Mucous membr. moist/pink, EOMI, Sclerae nonicteric Neck: Supple, 2+ carotid pulse no bruit, No LAD, Without JVD or thyroid abnormality Respiratory: Clear to auscultation bilaterally, Normal air movement Cardiovascular: Regular rate/rhythm, Normal S1 S2 Gastrointestinal: Normal bowel sounds, Soft and benign, Non-distended, No tenderness Musculoskeletal: No clubbing, No swelling, No tenderness Integumentary: No rashes Neurological: Normal speech, Normal tone, Sensation intact, Cranial nerves 3-12 intact, Normal affect, Abnormal gait, Abnormal strength Lymphatics: No axilla or inguinal lymphadenopathy Assessment & Plan Subjective Reports unintentional weight loss, moderate generalized weakness, vertigo, Neurology consulted, at bedside, fall precautions reports he is too weak to work with physical therapy Review of Systems 10-point ROS is otherwise unremarkable Physical Examination - Vital Signs reviewed - Physical Exam General: Alert, In no apparent distress, Oriented x3, no acute distress noted HEENT: Atraumatic, PERRLA, Mucous membr. moist/pink, EOMI, Sclerae nonicteric Neck: Supple, 2+ carotid pulse no bruit, No LAD, Without JVD or thyroid abnormality Respiratory: Clear to auscultation bilaterally, Normal air movement Cardiovascular: Regular rate/rhythm, Normal S1 S2 Gastrointestinal: Normal bowel sounds, Soft and benign, Non-distended, Musculoskeletal: No clubbing, No swelling, No tenderness Integumentary: No rashes Neurological: Normal speech, Normal tone, Sensation intact, Cranial nerves 3-12 intact, Normal affect, Abnormal gait, Abnormal strength Lymphatics: No axilla or inguinal lymphadenopathy Assessment & Plan - Problems (Diagnosis) suspected CVA Acute vertigo nausea vomiting Acute blurred vision Recent shingles infection [place] Gallo syndrome History of hypertension Acute left-sided weakness Unintentional weight loss Acute ataxia history of bradycardia arrhythmia with recent pacemaker - Plan Plan: 1. MRI of the brain; pacemaker compatible with MRI imaging. Patient follows up with Dr. Weathers. Paperwork in the chart 2. Antiplatelet and statin therapy 3. Lipid profile 4. Physical therapy and speech therapy consultation 5. DVT prophylaxis 6. Neurochecks every 4 hours 7. Reassess stroke scale 8. GI and DVT prophylaxis 9. CRP, TSH, vitamin B12 level, VZV IgG ordered by neurology 10. Neurology consult Dr. Fallon 11. Unable to do an MRI due to staffing capability with pacemaker Discharge Plan: Home Plan to discharge in: Greater than 2 days - Advance Directives Does patient have a Living Will: No Does patient have a Durable POA for Healthcare: No - Code Status/Comfort Care Code Status Assessed: Yes Code Status: Full Code Critical Care: No Time Spent Managing PTS Care (In Minutes): 35 <Evy Pate - Last Filed: 08/01/24 17:02> Chart has been reviewed. Events of the last 24 hours have been noted. Case discussed with ARIEL. I performed a substantial part of the MDM during this patient's care today. I personally made or approved the documented management plan and acknowledge its risk of complications. I agree with the findings and documentation provided in the ARIEL's notes Appreciate neurology input. Imaging studies reviewed. EEG reviewed. Trying to get patient transferred for MRI which is compatible with a pacemaker. Continue with physical therapy. Awaiting inpatient rehab placement. <Marino Lee - Last Filed: 08/06/24 01:44>
[2024-07-31] MEDS: POTASSIUM 25 MEQ EFFERV TAB PO ONE (09:30)
[2024-07-31] MEDS: ONDANSETRON 4 MG/2 ML VIAL IV PRN (11:56)
[2024-07-31] MEDS: BISACODYL E.C. 5 MG TAB PO PRN (16:00)
[2024-07-31] MEDS ORDERED: MECLIZINE HCL 12.5 MG TAB PO PRN (18:03)
[2024-07-31 20:23] VITALS: O2SAT 94
--- NOTE | 2024-08-01 07:40 | P.PN ---
Date of Service: 08/01/24 Subjective Reports unintentional weight loss, moderate generalized weakness, vertigo, Neurology consulted, at bedside, fall precautions reports he is too weak to work with physical therapy Review of Systems 10-point ROS is otherwise unremarkable Physical Examination - Vital Signs reviewed - Physical Exam General: Alert, In no apparent distress, Oriented x3 HEENT: Atraumatic, PERRLA, Mucous membr. moist/pink, EOMI, Sclerae nonicteric Neck: Supple, 2+ carotid pulse no bruit, No LAD, Without JVD or thyroid abnormality Respiratory: Clear to auscultation bilaterally, Normal air movement Cardiovascular: Regular rate/rhythm, Normal S1 S2 Gastrointestinal: Normal bowel sounds, Soft and benign, Non-distended, No tenderness Musculoskeletal: No clubbing, No swelling, No tenderness Integumentary: No rashes Neurological: Normal speech, Normal tone, Sensation intact, Cranial nerves 3-12 intact, Normal affect, Abnormal gait, Abnormal strength Lymphatics: No axilla or inguinal lymphadenopathy Assessment & Plan - Problems (Diagnosis) (1) Vertigo Current Visit: Yes Status: Acute (2) Blurred vision Current Visit: Yes Status: Acute (3) Ataxia Current Visit: Yes Status: Acute (4) History of hypertension Current Visit: Yes Status: Acute (5) Left-sided weakness Current Visit: Yes Status: Acute - Plan Plan: 1. MRI of the brain; pacemaker compatible with MRI imaging. Patient follows up with Dr. Weathers. Paperwork in the chart 2. Antiplatelet and statin therapy 3. Lipid profile 4. Physical therapy and speech therapy consultation 5. DVT prophylaxis 6. Neurochecks every 4 hours 7. Reassess stroke scale 8. GI and DVT prophylaxis 9. CRP, TSH, vitamin B12 level, VZV IgG ordered by neurology 10. Neurology consult Dr. Fallon Discharge Plan: Home Plan to discharge in: Greater than 2 days - Advance Directives Does patient have a Living Will: No Does patient have a Durable POA for Healthcare: No - Code Status/Comfort Care Code Status Assessed: Yes Code Status: Full Code Critical Care: No Time Spent Managing PTS Care (In Minutes): 35
[2024-08-01 08:03] LABS: Absolute Eosinophils 0.2 K/uL (0-0.5); Absolute Monocytes 0.4 K/uL (0.1-1.3); Absolute Neutrophil 3.2 K/uL (1.8-8.0); Basophils % 0.9 % (0-1.3); Eosinophils % 4.2 % (0-4.4); Hematocrit 37.2 % (39.6-49.0); Hemoglobin 12.2 g/dL (13.6-17.9); Lymphocytes % 21.3 % (15.3-44.8); MCH 29.1 pg (27.0-35.0); MCHC 32.7 g/dL (32.0-36.0); MCV 88.8 fL (80-100); MPV 7.5 fL (7.6-11.3); Monocytes % 7.3 % (3.3-12.3); Neutrophils % 66.3 % (41.7-73.7); Nucleated Red Blood Cells % 0.1 % (0-0); Platelets 180 thou/uL (152-406); RBC Red Blood Cell Count 4.19 M/uL (4.33-5.43); Red Cell Distribution Width 14.4 % (12.1-15.2)
[2024-08-01 08:18] LABS: Albumin 2.6 g/dL (3.4-5.0); Anion Gap 7.3 mEq/L (5.0-15.0); Phosphorus 2.8 mg/dL (2.5-4.9); Potassium 3.3 mEq/L (3.5-5.1)
[2024-08-01] MEDS: POTASSIUM 25 MEQ EFFERV TAB PO SCH ×2 (09:30→11:58)
--- NOTE | 2024-08-01 11:38 | P.DS ---
Admission Date: 07/29/24 Discharge Date: 08/01/24 Reason for Admission: Vertigo; ataxia; diplopia Brief History of Present Illness: Patient is a 78-year-old gentleman who came to the hospital with vertigo. He states he has been losing weight and is unable to walk properly. His left arm has been weak as well. He said the symptoms. About 3 weeks ago when he developed shingles in the left ear. Since then he was treated with valacyclovir and steroids. Even after completing his steroid course he continues having symptoms with vertigo as well as weakness in the left side. He is having a hard time getting around. He has had double vision as well. His appetite is also been diminished and he gets nauseated whenever he gets ready to eat. He has lost about 20 pounds in the last 3 weeks. He probably suffered to the hospital for further workup. He follows up with his PCP in [place]. He was scheduled to get an MRI done but at that time they were not aware where it was compatible with an MRI. After talking to patient's bone crusher who inserted the pacemaker they found out it was compatible with MRI. At this time, patient will be admitted to the hospital for further workup. Physical Exam General: Alert, In no apparent distress, Oriented x3 HEENT: Atraumatic, PERRLA, Mucous membr. moist/pink, EOMI, Sclerae nonicteric Neck: Supple, 2+ carotid pulse no bruit, No LAD, Without JVD or thyroid abnormality Respiratory: Clear to auscultation bilaterally, Normal air movement Cardiovascular: Regular rate/rhythm, Normal S1 S2 Gastrointestinal: Normal bowel sounds, Soft and benign, Non-distended, No tenderness Musculoskeletal: No clubbing, No swelling, No tenderness Integumentary: No rashes Neurological: Normal speech, Normal tone, Sensation intact, Cranial nerves 3-12 intact, Normal affect, Abnormal gait, Abnormal strength Lymphatics: No axilla or inguinal lymphadenopathy Hospital Course: 78-year-old with past medical history of hypertension; history of bradyarrhythmia, requiring pacemaker placement 3 weeks ago; shingles, left ear and some facial weakness as well, saw ENT, diagnosed Tiffany Gallo syndrome, had noted Vertigo, nausea, vomiting, gait imbalance. He was treated with finished the Valtrex. Restarted on IV Valtrex. He was seen by Neurology, plan to DC to Acute Inpatient rehab for possible CVA. Unable to obatin MRI due to Internal device. The Device is MRI compatable, we do not have the staff to dis engage PPM. He is improving, plan to DC to acute inpatient rehab for Physical therapy. Continue IV Acyclovir. Assessment Possible CVA unable to obtain MRI due to pacemaker Vertigo nausea, vomiting gait imbalance Unintentional weight loss hypertension history of bradyarrhythmia, requiring pacemaker placement 3 weeks ago shingles, left ear and some facial weakness as well, saw ENT, diagnosed Tiffany Gallo syndrome Continue home medicines as previously prescribed GOAL: Clear understanding of disease process INSTRUCTIONS: Physician Discharge Instructions: to acute inpatient rehab -Follow-up with Neurology after discharge -Follow-up with PCP in 1 week after Discharge from rehab -Please call nursing station at [phone] if any nursing or medication questions -Return to the emergency room if symptoms worsen Diet: ADA, low sodium Activity: Fall precautions <Evy Pate - Last Filed: 08/01/24 17:04> Admission Date: 07/27/24 Discharge Date: 08/01/24 - Problems (1) Vertigo Status: Acute (2) Blurred vision Status: Acute (3) Ataxia Status: Acute (4) History of hypertension Status: Acute (5) Left-sided weakness Status: Acute Hospital Course: Chart has been reviewed. Events of the last 24 hours have been noted. Case discussed with ARIEL. I performed a substantial part of the MDM during this patient's care today. I personally made or approved the documented management plan and acknowledge its risk of complications. I agree with the findings and documentation provided in the ARIEL's notes Appreciate neurology input. Imaging studies reviewed. EEG reviewed. Trying to get patient transferred for MRI which is compatible with a pacemaker. Continue with physical therapy. Transfer to inpatient rehab. <Marino Lee - Last Filed: 08/06/24 01:45> Disposition: TRANSFER TO INPATIENT REHAB Discharge Condition: FAIR Vital Signs/Physical Exam: Temp Pulse Resp BP Pulse Ox 96.9 F 62 16 153/76 H 96 08/01/24 04:00 08/01/24 08:57 08/01/24 04:00 08/01/24 08:57 08/01/24 04:00 Laboratory Data at Discharge: WBC 4.90 thou/uL (4.3-10.9) 08/01/24 07:56 Hgb 12.2 g/dL (13.6-17.9) L 08/01/24 07:56 Hct 37.2 % (39.6-49.0) L 08/01/24 07:56 Plt Count 180 thou/uL (152-406) 08/01/24 07:56 PT 10.9 SECONDS (9.4-12.5) 07/28/24 04:10 INR 0.97 07/28/24 04:10 APTT 28.0 SECONDS (24.3-36.9) 07/28/24 04:10 Sodium 138 mEq/L (136-145) 08/01/24 07:56 Potassium 3.3 mEq/L (3.5-5.1) L 08/01/24 07:56 BUN 8 mg/dL (7-18) 08/01/24 07:56 Creatinine 0.84 mg/dL (0.70-1.30) 08/01/24 07:56 Glucose 95 mg/dL (74-106) 08/01/24 07:56 Phosphorus 2.8 mg/dL (2.5-4.9) 08/01/24 07:56 Magnesium 2.1 mg/dL (1.6-2.4) 07/27/24 12:10 Total Bilirubin 0.4 mg/dL (0.2-1.0) 07/31/24 06:28 AST 17 U/L (15-37) 07/31/24 06:28 ALT 23 U/L (16-61) 07/31/24 06:28 Alkaline Phosphatase 56 U/L (45-117) 07/31/24 06:28 Triglycerides Cancelled 07/28/24 06:00 Cholesterol Cancelled 07/28/24 06:00 HDL Cholesterol Cancelled 07/28/24 06:00 Cholesterol/HDL Ratio Cancelled 07/28/24 06:00 <Evy Pate - Last Filed: 08/01/24 17:04> Vital Signs/Physical Exam: Temp Pulse Resp BP Pulse Ox 97.9 F 65 16 149/78 H 97 08/01/24 12:00 08/01/24 12:00 08/01/24 12:00 08/01/24 12:00 08/01/24 12:00 General: Alert, In no apparent distress, Oriented x3 Laboratory Data at Discharge: WBC 4.90 thou/uL (4.3-10.9) 08/01/24 07:56 Hgb 12.2 g/dL (13.6-17.9) L 08/01/24 07:56 Hct 37.2 % (39.6-49.0) L 08/01/24 07:56 Plt Count 180 thou/uL (152-406) 08/01/24 07:56 PT 10.9 SECONDS (9.4-12.5) 07/28/24 04:10 INR 0.97 07/28/24 04:10 APTT 28.0 SECONDS (24.3-36.9) 07/28/24 04:10 Sodium 138 mEq/L (136-145) 08/01/24 07:56 Potassium 3.3 mEq/L (3.5-5.1) L 08/01/24 07:56 BUN 8 mg/dL (7-18) 08/01/24 07:56 Creatinine 0.84 mg/dL (0.70-1.30) 08/01/24 07:56 Glucose 95 mg/dL (74-106) 08/01/24 07:56 Phosphorus 2.8 mg/dL (2.5-4.9) 08/01/24 07:56 Magnesium 2.1 mg/dL (1.6-2.4) 07/27/24 12:10 Total Bilirubin 0.4 mg/dL (0.2-1.0) 07/31/24 06:28 AST 17 U/L (15-37) 07/31/24 06:28 ALT 23 U/L (16-61) 07/31/24 06:28 Alkaline Phosphatase 56 U/L (45-117) 07/31/24 06:28 Triglycerides Cancelled 07/28/24 06:00 Cholesterol Cancelled 07/28/24 06:00 HDL Cholesterol Cancelled 07/28/24 06:00 Cholesterol/HDL Ratio Cancelled 07/28/24 06:00 <Marino Lee - Last Filed: 08/06/24 01:45> Time spent managing pt's care (in minutes): 55 <Evy Pate - Last Filed: 08/01/24 17:04> <Marino Lee - Last Filed: 08/06/24 01:45> Home Medications: Esomeprazole Magnesium 40 mg PO DAILY 07/27/24 Finasteride [Proscar*] 5 mg PO DAILY 07/27/24 Lisinopril [Zestril] 20 mg PO DAILY 07/27/24 Oxybutynin Chloride [Oxybutynin Chloride ER] 10 mg PO DAILY 07/28/24 Acyclovir Inj [Zovirax Inj] 700 mg IV Q8H 21 Days #100 ml 08/01/24 Amlodipine [Norvasc*] 5 mg PO DAILY tab 08/01/24 Aspirin [Aspirin EC 81 MG] 162 mg PO DAILY 30 Days #30 tab 08/01/24 Atorvastatin Calcium [Lipitor] 40 mg PO BEDTIME tab 08/01/24 Meclizine HCl [Antivert*] 25 mg PO Q6H PRN tab 08/01/24 Melatonin 10 mg PO BEDTIME PRN PRN 08/01/24 bisacodyL [Dulcolax*] 5 mg PO DAILY PRN tab 08/01/24 Linaclotide [Linzess] 290 mcg PO DAILY PRN #5 08/03/24 New Medications: Aspirin [Aspirin EC 81 MG] 162 mg PO DAILY 30 Days #30 tab Acyclovir Inj [Zovirax Inj] 700 mg IV Q8H 21 Days #100 ml Physician Discharge Instructions: 78-year-old with past medical history of hypertension; history of bradyarrhythmia, requiring pacemaker placement 3 weeks ago; shingles, left ear and some facial weakness as well, saw ENT, diagnosed Tiffany Gallo syndrome, had noted Vertigo, nausea, vomiting, gait imbalance. He was treated with finished the Valtrex. Restarted on IV Valtrex. He was seen by Neurology, plan to DC to Acute Inpatient rehab for possible CVA. Unable to obatin MRI due to Internal device. The Device is MRI compatable, we do not have the staff to dis engage PPM. He is improving, plan to DC to acute inpatient rehab for Physical therapy. Continue IV Acyclovir. Assessment Possible CVA unable to obtain MRI Vertigo nausea, vomiting gait imbalance hypertension history of bradyarrhythmia, requiring pacemaker placement 3 weeks ago shingles, left ear and some facial weakness as well, saw ENT, diagnosed Dinosaur Gallo syndrome Continue home medicines as previously prescribed GOAL: Clear understanding of disease process INSTRUCTIONS: Physician Discharge Instructions: to acute inpatient rehab -Follow-up with Neurology after discharge -Follow-up with PCP in 1 week after Discharge from rehab -Please call nursing station at [phone] if any nursing or medication questions -Return to the emergency room if symptoms worsen Diet: ADA, low sodium Activity: Fall precautions Followup: CULLEN CHANG [Primary Care Provider] -
[2024-08-01 12:29] VITALS: BP 149/78; TEMP 97.9
[2024-08-02 13:04] LABS: Varicella-Zoster Virus IgM 1.53 (<=0.90)
== END 2024-08-01 16:43 | DRG 65 ==
LOC: ER 11:26 → ERHOLD 17:49 → 2ND 18:29 → OBSVTOIN 07-29 09:21
PROVIDERS: ADMIT Hospitalist; ATTEND Hospitalist
DX: I63.9 Cerebral infarction, unspecified (principal); B02.21 Postherpetic geniculate ganglionitis; R27.0 Ataxia, unspecified; H53.2 Diplopia; B02.9 Zoster without complications; I10 Essential (primary) hypertension; N40.0 Benign prostatic hyperplasia without lower urinary tract symptoms; R29.810 Facial weakness; R11.2 Nausea with vomiting, unspecified; R29.704 NIHSS score 4; R63.4 Abnormal weight loss; Z95.0 Presence of cardiac pacemaker; Z88.0 Allergy status to penicillin; Z88.1 Allergy status to other antibiotic agents; Z79.82 Long term (current) use of aspirin; Z68.22 Body mass index [BMI] 22.0-22.9, adult; Z87.891 Personal history of nicotine dependence; Z79.899 Other long term (current) drug therapy
CPT/HCPCS: 36415; 70450; 70496; 70498; 71045; 80048; 80053; 80061; 80069; 80076; 82565; 82607; 82947; 83735; 84425; 84443; 84484; 85025; 85610; 85730; 86140; 86787; 93005; 95819; 96361; 96374; 97110; 97112; 97116; 97161; 97530; 99285; G0378; J0133; J1650; J1720; J2405; J3411; J7030; J8597; Q9967